=== PATIENT | female | born 1975 | race Caucasian/White ===

== ENCOUNTER 2023-12-24 03:07 | Emergency (ER) | payer MEDICAID ==
[~2023-12-24] VITALS: Ht 162.6 cm; Wt 60.8 kg
[2023-12-24] MEDS ORDERED: CYCLOBENZAPRINE 10 MG TABLET ONE (04:12)
[2023-12-24] MEDS ORDERED: IBUPROFEN 600 MG TABLET ONE (04:12)
[2023-12-24] MEDS: IBUPROFEN 600 MG TABLET PO ONE (04:22)
[2023-12-24] MEDS: CYCLOBENZAPRINE 10 MG TABLET PO ONE (04:22)
[2023-12-24] MEDS ORDERED: CYCL5TAB PO (05:44)
[2023-12-24 06:01] VITALS: BP 103/69; TEMP 98; O2SAT 98
== END 2023-12-24 06:02 | disposition home or self-care (01) ==
LOC: ER 03:17
DX: M54.59 Other low back pain (principal); R51.9 Headache, unspecified; M79.641 Pain in right hand; W10.9XXA Fall (on) (from) unspecified stairs and steps, initial encounter; Y93.89 Activity, other specified; Y92.098 Other place in other non-institutional residence as the place of occurrence of the external cause; Y99.8 Other external cause status
CPT/HCPCS: 72110-TC; 73130-TC